=== PATIENT | female | born 1985 | race Two or more races ===

== ENCOUNTER 2022-04-07 22:56 | Emergency (ER) | payer MEDICAID ==
[~2022-04-07] VITALS: Ht 162.6 cm; Wt 61.4 kg
[2022-04-07 23:57] VITALS: BP 130/76
[2022-04-08 01:07] LABS: Basophils # (auto) 0 10 ^3/uL (0-0.2); Basophils % (auto) 0.3 % (0.0-2.0); Eosinophils # (auto) 0 10 ^3/uL (0-0.8); Eosinophils % (auto) 0.1 % (0.0-7.0); Hemoglobin 14.1 g/dL (12.2-16.2); Lymphocytes # (auto) 2.2 10 ^3/uL (0.4-5.4); Lymphocytes % (auto) 20.2 % (10.0-50.0); Mean Corpuscular Hemoglobin 32.2 pg (28.0-32.0); Mean Corpuscular Hgb Conc. 34.3 g/dL (32.0-36.0); Mean Corpuscular Volume 93.9 fL (80.0-100.0); Monocytes # (auto) 0.8 10 ^3/uL (0-1.3); Monocytes % (auto) 7.4 % (0.0-12.0); Neutrophils # (auto) 7.9 10 ^3/uL (1.6-8.6); Red Blood Cells 4.37 10^6/uL (4.0-5.20); Red Cell Distribution Width 12.5 % (11.8-14.3)
[2022-04-08 01:31] LABS: Albumin 4.5 g/dL (3.4-5.0); BUN/Creatinine Ratio 8.2; Calcium 9.2 mg/dL (8.5-10.1); Potassium 3.1 mmol/L (3.5-5.1)
[2022-04-08 01:34] LABS: Bilirubin, Total 0.8 mg/dL (0.2-1.0); Total Protein 8.2 g/dL (6.4-8.2)
[2022-04-08 07:51] LABS: Urine Bacteria FEW /hpf (None Seen); Urine Blood Negative /uL (Negative); Urine Mucus FEW (None Seen); Urine WBC 1 /hpf (0 - 5)
[2022-04-08] MEDS ORDERED: HYDR50CA PO (08:58)
[2022-04-08] MEDS ORDERED: DICY10CA PO (08:58)
[2022-04-08] MEDS ORDERED: POTASSIUM CHL 20 Meq TABLET PO ONE (09:00)
[2022-04-08] MEDS ORDERED: ALPRAZolam 0.5 MG TAB PO ONE (09:00)
== END 2022-04-08 09:14 | disposition home or self-care (01) ==
LOC: ER 22:58
DX: K52.9 Noninfective gastroenteritis and colitis, unspecified (principal); F41.8 Other specified anxiety disorders; R07.89 Other chest pain; R10.2 Pelvic and perineal pain; G43.909 Migraine, unspecified, not intractable, without status migrainosus; Z79.899 Other long term (current) drug therapy
CPT/HCPCS: 36415; 70450; 71045; 80053; 81001; 83735; 84443; 84484; 84702; 85025; 93005